=== PATIENT | male | born 2005 | race Caucasian/White ===

== ENCOUNTER 2025-05-11 14:17 | Outpatient (CLI) | payer OTHER, SELFPAY ==
--- NOTE | 2025-05-11 14:31 | XR_ITS ---
WS: [id number] XR shoulder LT min 2V* [id number] REASON FOR EXAM: left shoulder pain FINDINGS: No fracture or focal bone lesion. The acromioclavicular joint space is intact without significant arthropathy. Acromial process is a moderate lateral downward slant orientation. The glenohumeral joint space is not well demonstrated on this examination. The joint space does not appear to be significantly narrowed. No significant abnormality of the humeral head. XR/XR shoulder LT min 2V* [id number] IMPRESSION: Moderate downward slant orientation of the acromial process. Left shoulder othe rwise unremarkable.
== END 2025-05-11 14:18 | disposition home or self-care (01) ==
PROVIDERS: Family Provider Family Medicine; PCP Nurse Practitioner Family
DX: M25.512 Pain in left shoulder (principal)
CPT/HCPCS: 73030; 80053; 85025; 85651; 86141